=== PATIENT | male | born 1985 | race American Indian/Alaskan Native ===

== ENCOUNTER 2016-11-30 10:30 | Emergency (ER) | payer MEDICAID, OTHER ==
--- NOTE | 2016-11-30 10:35 | ED PDOC ---
Arrival/HPI - General Historian: Patient - General Time Seen by Provider: 11/30/16 10:34 - History of Present Illness Narrative History of Present Illness (Text): 11/30/16 10:35 31 y/o male, no significant pmh, nkda, c/o coughing and fever x 2 days. Pt. has runny nose, associated with dry coughing, admits had an episode of fever yesterday with tmax 100.7F, no chills, no night sweat, no palpitation, no rash, no diarrhea, no weight loss, no neck stiffness no recent traveling for the past 4 weeks, no other medical or psychological complaints. (Dave Mccray) Past Medical History - Provider Review Nursing Documentation Reviewed: Yes - Infectious Disease Hx of Infectious Diseases: None - Tetanus Immunization Tetanus Immunization: Unknown - Past Medical History Past Medical History: Unable to Obtain - Cardiac Hx Hypertension: Yes - Psychiatric Hx Depression: No Hx Emotional Abuse: No Hx Physical Abuse: No Hx Substance Use: Yes - Past Surgical History Past Surgical History: Unable to Obtain - Suicidal Assessment Feels Threatened In Home Enviroment: No Family/Social History - Physician Review Nursing Documentation Reviewed: Yes Family/Social History: Unknown Family HX Smoking Status: Light Smoker < 10 Cigarettes Daily Hx Alcohol Use: Yes (unk) Hx Substance Use: Yes Allergies/Home Meds Allergies/Adverse Reactions: Allergies No Known Allergies Allergy (Verified 12/23/13 16:58) Review of Systems - Review of Systems Constitutional: Fevers. absent: Fatigue Eyes: absent: Vision Changes ENT: Rhinorrhea. absent: Hearing Changes, Voice Changes, Sore Throat, Epistaxis Respiratory: Cough. absent: SOB, Sputum, Wheezing Cardiovascular: absent: Chest Pain, Palpitations Gastrointestinal: absent: Abdominal Pain, Diarrhea, Nausea, Vomiting Musculoskeletal: absent: Arthralgias, Back Pain, Myalgias Skin: absent: Rash, Pruritis Neurological: absent: Headache Physical Exam Vital Signs Reviewed: Yes Temperature: Afebrile Blood Pressure: Normal Pulse: Regular Respiratory Rate: Normal Appearance: Positive for: Well-Appearing, Non-Toxic, Comfortable Pain Distress: Mild Mental Status: Positive for: Alert and Oriented X 3 - Systems Exam Head: Present: Atraumatic, Normocephalic Pupils: Present: PERRL Extroacular Muscles: Present: EOMI Conjunctiva: Present: Normal Ears: Present: NORMAL TM, Normal Canal. No: Erythema Mouth: Present: Moist Mucous Membranes Pharnyx: No: ERYTHEMA, EXUDATE, TONSILS ENLARGED, Uvular Deviation, Soft Palate/ Uvular Edema Nose (External): Present: Atraumatic. No: Abrasion, Contusion, Laceration Nose (Internal): Present: Normal Inspection, No Active Bleeding, Rhinorrhea, Other (no visible foreign bodies). No: Septal Hematoma, Epistaxis Neck: Present: Normal Range of Motion Respiratory/Chest: Present: Clear to Auscultation, Good Air Exchange, Rhonchi ( mild rhonchi on rt. lower lobe that clear with coughing. ), Other. No: Respiratory Distress, Accessory Muscle Use, Wheezes, Decreased Breath Sounds, Rales, Retracting, Tachypneic, Tender to Palpation Cardiovascular: Present: Regular Rate and Rhythm, Normal S1, S2. No: Murmurs Abdomen: Present: Normal Bowel Sounds. No: Tenderness, Distention, Peritoneal Signs Back: Present: Normal Inspection Upper Extremity: Present: Normal Inspection. No: Cyanosis, Edema Lower Extremity: Present: Normal Inspection. No: Edema Neurological: Present: GCS=15, Speech Normal, Motor Func Grossly Intact, Gait Normal, Memory Normal Skin: Present: Warm, Dry, Normal Color. No: Rashes Psychiatric: Present: Alert, Oriented x 3, Normal Insight, Normal Concentration Vital Signs Temp Pulse Resp BP Pulse Ox 11/30/16 11:39 79 18 134/89 97 11/30/16 10:41 98.0 F 82 18 136/97 H 97 Medical Decision Making - RAD Interpretation Supervisor Fishing: Radiologist ED Course and Treatment: 11/30/16 11:05 I was available for consultation during PA evaluation. The chart was reviewed by me, and I agree with disposition. The documented history was done by the physician technologist infectious disease. The documented physical exam was done by the physician technologist infectious disease. The documented procedures were done by the physician technologist infectious disease. (Clem Cannon) 11/30/16 10:53 -chest x-ray -motrin 11/30/16 11:43 -Chest x-ay show no active disease -Discharge home with augmentin, motrin, claritin d24, flonase, stay hydrated, follow up with your own pmd and ENT within 2 days, return to the ER for any new or worsening signs or symptoms. 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 Disposition/Present on Arrival - Present on Arrival Any Indicators Present on Arrival: No History of DVT/PE: No History of Uncontrolled Diabetes: No Urinary Catheter: No History of Decub. Ulcer: No History Surgical Site Infection Following: None - Disposition Have Diagnosis and Disposition been Completed?: Yes Disposition Time: 10:54 Patient Plan: Discharge - Disposition Diagnosis: Sinusitis Disposition: HOME/ ROUTINE Condition: GOOD Additional Instructions: -Discharge home with augmentin, motrin, claritin d24, flonase, stay hydrated, follow up with your own pmd and ENT within 2 days, return to the ER for any new or worsening signs or symptoms. Prescriptions: Amoxicillin/Clavulanate [Augmentin 875 MG-125 MG] 1 tab PO BID #14 tab Fluticasone Nasal [Flonase] 1 spr NS DAILY #1 spr Ibuprofen [Motrin Tab] 600 mg PO QID PRN #24 tab PRN Reason: Other Loratadine/Pseudoephedrine [Claritin-D 24 Hour Tablet] 1 each PO DAILY #7 tab.er.24h Referrals: Issac Barnes DO [Staff Provider] - Follow up with primary Forms: WORK NOTE
[2016-11-30 10:40] VITALS: BMI 30.8
[2016-11-30 10:43] VITALS: RESP 18; TEMP 98
--- NOTE | 2016-11-30 11:28 | RAD ---
HISTORY: Cough COMPARISON: 07/03/2012. TECHNIQUE: Chest PA and lateral FINDINGS: LUNGS: The lungs are well inflated and clear. PLEURA: No significant pleural effusion identified. No pneumothorax apparent. CARDIOVASCULAR: Normal. OSSEOUS STRUCTURES: No significant abnormalities. VISUALIZED UPPER ABDOMEN: Normal. OTHER FINDINGS: None. IMPRESSION: No active pulmonary disease.
[2016-11-30 11:53] VITALS: BP 132/85; PULSE 73; O2SAT 98
== END 2016-11-30 11:55 | disposition home or self-care (01) ==
LOC: ED 10:30
DX: J32.9 Chronic sinusitis, unspecified (principal)